=== PATIENT | male | born 1965 | race Caucasian/White ===

== ENCOUNTER 2021-12-04 08:11 | Emergency (ER) | payer OTHER, SELFPAY ==
[2021-12-04 08:18] VITALS: BP 150/89; PULSE 64; RESP 16; TEMP 36.8; O2SAT 99
--- NOTE | 2021-12-04 08:24 | ED.URI ---
HPI - URI/Sore Throat General Chief Complaint: Upper Respiratory Infection Stated Complaint: cough up yellow phlem Time Seen by Provider: 12/04/21 08:39 Source: patient and RN notes reviewed Mode of arrival: ambulatory Limitations: no limitations History of Present Illness HPI Narrative: 56-year-old male presents with concern for history cough chest congestion sinus drainage, headache. He reports a low-grade fever yesterday. Reports the symptoms started after he came [place]. He reports he has been taking Sudafed, using a Neti pot and taking ibuprofen with little relief. MD elicited complaint: cough and nasal congestion Related Data Allergies Allergy/AdvReac Type Severity Reaction Status Date / Time No Known Allergies Allergy Unverified 09/24/21 10:55 Review of Systems Review of Systems: CONSTITUTIONAL: Reports malaise, low-grade fever. EYES: Denies visual changes, redness, or discharge. ENT: Reports rhinorrhea, congestion, sinus pain. Denies otalgia and sore throat. CARDIOVASCULAR: Denies chest pain, palpitations, or edema. RESPIRATORY: Reports productive cough, chest congestion. Denies dyspnea. GASTROINTESTINAL: Denies abdominal pain, nausea, vomiting, diarrhea SKIN: Denies rash or itching. MUSCULOSKELETAL: Denies myalgia. NEUROLOGIC: Reports headache. All systems reviewed & are unremarkable except as noted in HPI and below PMFSH Past Medical History Medical History (Updated 12/04/21 @ 08:46 by Kavita Camp NP) Actinic keratosis Elevated blood pressure reading Erectile dysfunction Hypertriglyceridemia IFG (impaired fasting glucose) CHIDI (obstructive sleep apnea) Family History Family History Mother Family history of Parkinson's disease Father Family history of coronary artery disease Sibling Family history of malignant neoplasm of breast in first degree relative Social History Social History Smoking status: Never smoker Alcohol intake: never Substance use: never Gender identity (if verbalized by the patient): Male Comments At time of signature, agree with nursing past medical, surgical, social and family history. There is no relevant family history pertinent to the presenting complaint Exam Narrative: GENERAL: Well-appearing, well-nourished, and in no acute distress. HEAD: Normocephalic EYES: PERRLA, conjunctivae clear ENT: Nares clear, turbinates edematous and erythematous, sinus tenderness. Mucous membranes moist. TM pearly bettencourt with dull light reflex bilaterally; no tragal tenderness. Oropharynx not erythematous without lesions. Tonsils not enlarged and without exudate, no drooling, no hoarseness, no trismus, uvula midline. NECK: Supple. No lymphadenopathy CHEST: Clear to auscultation, breath sounds equal. No wheezing, rhonchi, rales, or stridor. No respiratory distress, speaks in full sentences. HEART: Regular rate and rhythm. No murmur heard. SKIN: Warm, dry, no rash. NEURO: Alert and oriented x3. PSYCH: Normal mood and affect Course Course Emergency Course: Patient is aware of diagnosis, understands and agrees to treatment plan. Anticipatory guidance given. Patient agrees to follow-up as directed and is aware of reasons to seek care at the emergency department. Portions of this record may have been created with voice recognition software Level of Care: Express Care Visit Vital Signs Vital signs: Vital Signs Temperature 98.3 F 12/04/21 08:18 Pulse Rate 64 12/04/21 08:18 Respiratory Rate 16 12/04/21 08:18 Blood Pressure 150/89 H 12/04/21 08:18 Pulse Oximetry 99 12/04/21 08:18 Temperature 98.3 F 12/04/21 08:18 Pulse Rate 64 12/04/21 08:18 Respiratory Rate 16 12/04/21 08:18 Blood Pressure 150/89 H 12/04/21 08:18 Pulse Oximetry 99 12/04/21 08:18 Reviewed. MDM - URI/Sore Throat MDM Narrative Medical decision m
== END 2021-12-04 08:55 | disposition home or self-care (01) ==
PROVIDERS: Emergency Provider Nurse Practitioner; PCP Family Medicine
DX: J40 Bronchitis, not specified as acute or chronic (principal); G47.33 Obstructive sleep apnea (adult) (pediatric); E78.1 Pure hyperglyceridemia; Z20.822 Contact with and (suspected) exposure to COVID-19
CPT/HCPCS: 87426; 87804; 99213; C9803; G0463

== ENCOUNTER → 2021-12-28 16:48 | Outpatient (CLI) | payer OTHER, SELFPAY ==
--- NOTE | ~2021-12-28 | XR_ITS ---
XR finger 4th RT min 2V DATE: 12/28/2021 17:09 INDICATION: Fourth digit pain TECHNIQUE: 4 views COMPARISON: None FINDINGS: No recent fracture or dislocation, periosteal reaction or bone destruction is detected. Sobeida nt spaces are relatively preserved. Likely chronic small linear calcification is noted adjacent to th e medial aspect of the base of the proximal phalanx, likely chronic. No radiopaque soft tissue foreig n body or subcutaneous emphysema. IMPRESSION: No acute finding Reviewed, dictated and finalized at location A. TE ENCODING OPERATIONS SUPERVISOR IMPRESSION: No acute finding
== END ==
PROVIDERS: PCP Family Medicine; Visit Provider Family Medicine
DX: M79.646 Pain in unspecified finger(s) (principal)
CPT/HCPCS: 73140

== ENCOUNTER 2023-04-16 08:38 | Emergency (ER) | payer OTHER, SELFPAY ==
[2023-04-16 08:46] VITALS: BP 143/86; PULSE 56; RESP 16; TEMP 36.5; O2SAT 99
--- NOTE | 2023-04-16 08:58 | ED.URI ---
HPI - URI/Sore Throat General Chief Complaint: Upper Respiratory Infection Stated Complaint: SINUS CONGESTION/DRAINAGE/COUGH Time Seen by Provider: 04/16/23 08:58 History of Present Illness HPI Narrative: 57-year-old male presented for complaint of pressure congestion with cough for over 1 week. He is taking Sudafed yesterday with some relief in symptoms. He endorses occasional wheezing/rattling in the chest. Symptoms worse at night. Cough is productive of yellow or green sputum. He denies shortness of breath, nausea vomiting diarrhea, lethargy, fevers chills. Related Data Allergies Allergy/AdvReac Type Severity Reaction Status Date / Time No Known Allergies Allergy Verified 10/15/22 10:06 Review of Systems Review of Systems: CONSTITUTIONAL: Denies body aches, fever, chills, or sweats. EYES: Denies visual changes, redness, or discharge. ENT: reports rhinorrhea, congestion, denies sore throat or otalgia. CARDIOVASCULAR: Denies chest pain, palpitations, or edema. RESPIRATORY: reports cough Denies dyspnea. GASTROINTESTINAL: Denies abdominal pain, nausea, vomiting, or diarrhea. SKIN: Denies rash, itching, or wounds. MUSCULOSKELETAL: Denies back pain, joint pain, or myalgia. NEUROLOGIC: Denies headache PMFSH Past Medical History Medical History Actinic keratosis Elevated blood pressure reading Erectile dysfunction Hypertriglyceridemia IFG (impaired fasting glucose) CHIDI (obstructive sleep apnea) Family History Family History Mother Family history of Parkinson's disease Father Family history of coronary artery disease Sibling Family history of malignant neoplasm of breast in first degree relative Social History Social History Smoking status: Never smoker Alcohol intake: never Substance use: never Living arrangements: with family Occupation/Education: occupation Gender identity (if verbalized by the patient): Male Sexual Orientation (if Verbalized by the Patient): Straight or Heterosexual Spiritual care concerns: No Exam Narrative: GENERAL: well-appearing, no acute distress. EYES: conjunctivae clear ENT: Mucous membranes moist. TMs pearly bettencourt with normal light reflex bilaterally; no tragal tenderness. Oropharynx not erythematous without lesions. No drooling, no hoarseness, no trismus, uvula midline. No tripod positioning, hot potato voice, or soft palate swelling. NECK: Supple. No lymphadenopathy CHEST: Clear to auscultation, breath sounds equal. No respiratory distress, speaks in full sentences. HEART: Regular rate and rhythm. No murmur heard. SKIN: Warm, dry, no rash. NEURO: Alert and oriented x3. Course Course Emergency Course: Patient is aware of diagnosis, understands and agrees to treatment plan. Anticipatory guidance given. Patient agrees to follow-up as directed and is aware of reasons to seek care at the emergency department. Portions of this record may have been created with voice recognition software Level of Care: Express Care Visit Vital Signs Vital signs: Vital Signs Temperature 97.7 F 04/16/23 08:46 Pulse Rate 56 L 04/16/23 08:46 Respiratory Rate 16 04/16/23 08:46 Blood Pressure 143/86 H 04/16/23 08:46 Pulse Oximetry 99 04/16/23 08:46 Temperature 97.7 F 04/16/23 08:46 Pulse Rate 56 L 04/16/23 08:46 Respiratory Rate 16 04/16/23 08:46 Blood Pressure 143/86 H 04/16/23 08:46 Pulse Oximetry 99 04/16/23 08:46 MDM - URI/Sore Throat MDM Narrative Medical decision making narrative: Discussed physical exam findings. Advise supportive treatments. Patient is appropriate for outpatient treatment and follow-up. Differential Diagnosis Differential diagnosis: Likely upper respiratory infection, sinusitis, viral infection and pharyngitis Discharge Plan Disc
== END 2023-04-16 09:16 | disposition home or self-care (01) ==
PROVIDERS: Emergency Provider Nurse Practitioner Family; PCP Family Medicine
DX: J06.9 Acute upper respiratory infection, unspecified (principal); E78.1 Pure hyperglyceridemia; R73.01 Impaired fasting glucose
CPT/HCPCS: 99213; G0463

== ENCOUNTER → 2024-10-22 09:53 | Outpatient (CLI) | payer OTHER, SELFPAY ==
--- OUTSIDE RECORDS SUMMARY | 2024-10-22 11:06 | XMS_ITS | Clinical Summary ---
Author Organization [facility] Address [address] [place] [address] Care Team Providers Care Commercial Lending Relationship Manager Name Role Phone Unavailable Primary Care Provider Unavailabl e Source Comments [facility],non-owned Affiliates and Associated Physician Practices is amultiple site organization consisting of ambulatory clinics and hospital sitesin [place], [place], [place] and [place]. This disclosure is being madepursuant to the Care Everywhere program and may not contain all information available regarding this patient. Last updated 17.[facility] Social History Tobacco Use Types Packs/Day Years Used Date Smoking Tobacco: Never Assessed Sex and Gender Information Value Date Recorded Sex Assigned at Not on file Legal Sex Male 3:57 PM CDT Gender Identity Not on file Sexual Orientation Not on file Plan of Treatment Health Maintenance Due Date Last Done Comments COLOGUARD (AGES 45-75) - COL ON CA SCREENING 1964 COLON MONITORING 1964 COLONOSCOPY - COLON CA SCREENING 1964 CT COLONOGRAPHY - COLON CA SCREENING 1964 Colorectal Cancer Screening 1964 FIT - COLON CA SCREENING 1964 FLEX SIG - COLON CA SCREENING 1964 LIPID TESTING 1964 HIV SCREENING 06/21/1979 HEPATITIS C SCREENING 06/16/1982 DTAP/TDAP/TD VACCINES (1 - Tdap) 06/21/1983 PNEUMOCOCCAL VACCINE 50+ (1 of 1 - PCV) 2014 ZOSTER VACCINE (1 of 2) 2014 DEPRESSION SCREENING 02/08/2024 COVID-19 VACCINE (1 - 2023-2 5 season) 2024 INFLUENZA VACCINE (#1) 2024 Respiratory Syncytial Virus (RSV) Vaccine Pt: or over 60 yrs (1 - 1-dose 75+ series) 06/21/2039 HEPATITIS B VACCINE Aged Out No longe r eligible based on patient's age to complete this topic HIB VACCINE Aged Out No longer eligi ble based on patient's age to complete this topic HPV VACCINE Aged Out No longer eligi ble based on patient's age to complete this topic MENINGOCOCCAL (Group B) VACC INE SHARED DECISION-MAKING Aged Out No longer eligibl e based on patient's age to complete this topic MENINGOCOCCAL GROUPS A/C/Y/W VACCINE Aged Out No longer eligible b ased on patient's age to complete this topic Insurance
--- OUTSIDE RECORDS SUMMARY | 2024-10-22 11:06 | XMS_ITS | Encounter Summary ---
Author Organization [facility] Address [address] [place] [address] Care Team Providers Care Director Recreation Name Role Phone Unavailable Primary Care Provider Unavailabl e Encounter Details Date Type Department Care Team (Late st Contact Info) Description 09/06/2023 Lab Requisition [facility] - DermPath Lab [address] [place] [address] Jesus Guerra MD [facility] DERMATOLOGY [address] [place] [phone] Neoplasm of uncertain behavior of skin Social History Tobacco Use Types Packs/Day Years Used Date Smoking Tobacco: Never Assessed Sex and Gender Information Value Date Recorded Sex Assigned at Not on file Legal Sex Male 3:57 PM CDT Gender Identity Not on file Sexual Orientation Not on file documented as of this encounter Plan of Treatment Not on file documented as of this encounter Procedures Procedure Name Priority Date/Time Associated Diagnosis Comments DERMATOPATHOLOGY Routine 09/06/2023 12:0 0 AM CDT Neoplasm of uncertain behavior of skin documented in this encounter Results * DERMATOPATHOLOGY (09/06/2023 12:00 AM CDT) Case Report Dermatopathology Report Case: [id number] Authorizing Provider: Jesus Guerra MD Collected: 09/06/2023 12:00 AM Ordering Location: [facility] - Received: 09/07/2023 01:06 PM DermPath Lab Pathologist: Ariana Renae MD Specimen: Skin, right nasal dorsum 12:15 PM CDT DERMATOPATHOLOGY LABORATORY Final Diagnosis Specimen A. SKIN, right nasal dorsum: BASAL CELL CARCINOMA, INFILTRATIVE PATTERN ([id number]) (see microscopic description) 12:15 PM CDT DERMATOPATHOLOGY LABORATORY at 1215 CDT Clinical History BCC 12:15 PM CDT DERMATOPATHOLOGY LABORATORY Gross Description Specimen A: Received is one formalin filled container labeled with the patient's name and designated right nasal dorsum. The specimen consists of a shave biopsy measuring 5x3x1 mm. Jar 0. 12:15 PM CDT DERMATOPATHOLOGY LABORATORY Microscopic Description Specimen A. SKIN, right nasal dorsum: Within the dermis there are nodular aggregates of basaloid cells associated with fibromyxoid stroma and epithelial-stromal clefts. At the advancing margin of the neoplasm, there are smaller angulated nests that infiltrate the dermis. Additional deeper sections were obtained and reviewed. 12:15 PM CDT DERMATOPATHOLOGY LABORATORY Disclaimer An external and internal positive and negative controls are appropriate for the histochemical, immunohistochemical and immunofluorescence stain(s) in this case (if any), except where stated explicitly. The performance characteristics of the stain(s) cited in this report were developed and its performance characteristic determined by the Dermatopathology Laboratory at [facility], directed by Dr. Cherelle Sierra. These tests need not be, and therefore are not, approved by the [place] Food and Drug Administration. The tests are used for clinical purposes. Billing Codes Specimen Charges Stain Charges 76335 1 12:15 PM CDT DERMATOPATHOLOGY LABORATORY Embedded Images 12:15 PM CDT DERMATOPATHOLOGY LABORATORY Pathology/Cytolog y TISSUE SPECIMEN FROM SKIN / Unknown 09/06/2023 09/07/2023 1:06 PM CDT us Jesus Guerra MD LAB - PATHOLOGY/CYTOLOGY [facility] Final Result DERMATOPATHOLOGY LABORATORY [facility] - Department of Dermatology [address] [place] [address], [facility] [phone] documented in this encounter Visit Diagnoses Diagnosis Neoplasm of uncertain behavior of skin documented in this encounter
--- NOTE | 2024-11-07 16:08 | WPDSLEEPSTUD ---
Sleep Study Date of Study: 10/22/24 Ordering Provider: Roxanne Koenig MD Interpreting Physician: Roxanne Koenig MD Sleep Study Type: Split Polysomnogram Height: 1.78 m Weight: 95.254 kg Body Mass Index: 30.1 Neck Circumference (inches): 15 [place]: 10 Reason for Sleep Study known obstructive sleep apnea, sleep maintenance insomnia, machine is old, needs repeat testing Sleep History Sammy Rangel is a 59-year-old man with obstructive sleep apnea diagnosed and treatment started about 2015. He has the same machine since 2016 at the same setting, CPAP 7 cm. He has sleep maintenance insomnia which started about the time that he was diagnosed with sleep apnea. He uses trazodone every night to get to sleep. He has had night sweats for many years. He wakes up with a racing heart. 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 He initially had a sleep study in lying in sleep lab, was given CPAP and started on trazodone. His machine is old and he needs re-evaluation. He frequently awakens from sleep feeling short of breath with palpitations. He occasionally awakens at night with heartburn, belching or coughing. He frequently snores when not wearing CPAP, and he snores loud enough for others to complain also while not using CPAP. He occasionally has difficulty sleeping when he has a cold. He rarely wakes up gasping for breath during the night. He frequently has breathing problems at night observed by others. He frequently sweats excessively at night and notices palpitations at night. He occasionally falls asleep during the day. He never falls asleep involuntarily but has rarely fallen asleep while driving. He does not have loss of muscle tone with strong emotion. He occasionally has daytime difficulties due to excessive sleepiness. He does not feel paralyzed on waking or falling asleep. He rarely has vivid dreamlike scenes upon awakening or falling asleep. He does not feel afraid to go to sleep. He occasionally has nightmares. He rarely remembers his dreams. He frequently has racing thoughts. He occasionally feels sad or depressed. He frequently has anxiety. He rarely has muscular tension. He rarely notices parts of his body jerking. He does not think that he kicks at night. He rarely has crawling or aching feelings in his legs at night. He rarely has any kind of leg pain at night. He does not have morning jaw pain nor does he grind his teeth at night. He rarely is bothered by pain during the day, never awakened by pain at night. He frequently wakes up feeling stiff in the morning with sore achy muscles and pain in the neck and spine. He has fatigue, memory problems, concentration difficulties, insomnia, headaches and palpitations. Normal bedtime is 10:00 p.m. falling asleep within 5-10 minutes, waking 4 times at night to use the bathroom and he may take another trazodone if he can not return to sleep. He estimates waking 4 times during the night and he may stay awake for an hour before being able to return to sleep. He estimates getting 4 hours of sleep on average night. This is causing to back off on social activities. He has erectile dysfunction and uses Viagra. His wake time is 2:00 a.m.. He keeps the same schedule on weekends. He generally does not take naps in the afternoon or evening but a short nap lasting 10 or 15 minutes may be refreshing. He feels better in the morning compared to other times of day. Sometimes he feels refreshed in the morning but not always. Habits: Tobacco : never smoker Caffeine : 1 servings daily Alcohol : no Recreational substances : no PMFSH Past Medical History Medical History IFG (impaired fasting glucose) Erectile dysfunction CHIDI (obstructive sleep apnea) Elevated blood pressure reading Actinic keratosis Hypertriglyceridemia Family History Family History Mother Family history of Parkinson's disease Father Family history of coronary artery disease Sibling Family history of malignant neoplasm of breast in first degree relative Social History Social History Smoking status: Never smoker Alcohol intake: never Substance use: never Living arrangements: with family Occupation/Education: occupation Gender identity (if verbalized by the patient): Male Sexual Orientation (if Verbalized by the Patient): Straight or Heterosexual Spiritual care concerns: No Medications Home Medications ?Medication ?Instructions ?Recorded ?Confirmed ?Type tadalafil 10 mg tablet 10 mg PO DAILY PRN sexual activity 04/20/24 11/07/24 Rx #18 tabs trazodone 100 mg tablet 150 mg (1.5 x 100 mg) PO QHS PRN 04/20/24 11/07/24 Rx insomnia #135 tabs Sleep Procedure A split night polysomnogram using the [employer] multi-channel system recorded the standard physiologic parameters including EEG, EOG, submentalis EMG, anterior tibialis EMG, EKG, body position, nasal and oral airflow using nasal pressure sensor and thermistor. Respiratory parameters of chest and abdominal movements were recorded with Respiratory Inductance Plethysmography belts. Oxygen saturation was recorded by pulse oximetry. Video monitoring was also performed. Sleep stages, periodic limb movements, and EEG arousals were scored in 30 second epochs according to the criteria of the AASM Scoring Manual. The Apnea-Hypopnea Index was calculated using [facility] guidelines for definition of hypopnea while scoring respiratory events. After the baseline portion the patient met criteria for a titration with an AHI of 13.2 (p>3%) and desaturation to 89%. He used a medium ResMed AirFit N30 I nasal mask with pillows, initial pressure was CPAP 5 with increased to CPAP 7 to help him fall asleep because the sleep efficiency was so low. At CPAP 7 cm, he spent 141.5 minutes in bed, 66 minutes awake, 48.5 minutes in non-REM and 27 minutes in REM. Sleep efficiency was 53.4% with a residual apnea-hypopnea index of 2.4. His lowest saturation was 92%. REM was in the left lateral position. both on the baseline and during the titration. Sleep Architecture During the diagnostic portion of the study, the total recording time was 228.8 minutes. The total sleep time was 159.0 minutes. Sleep latency was 20.8 minutes. REM latency was 98.5 minutes. Sleep Efficiency was 69.5%. The patient had 26 awakenings for an awakening index of 9.8. Wake after sleep onset time was 49.0 minutes. The patient spent 20.5 minutes, 12.9% of total sleep time in Stage N1. The patient spent 97.0 minutes, 61.0% in Stage N2. The patient spent 1.0 minute, 0.6% in Stage N3. The patient spent 40.5 minutes, 25.5% in Stage REM sleep. At 01:21:07 AM the patient was placed on PAP treatment using a Medium ResMed AirFit N 30 I nasal mask with pillows, initial pressure was CPAP 5 increased to CPAP 7 however the patient was awake most of the night after starting PAP therapy During the treatment portion of the study, the total recording time was 255.7 minutes. The total sleep time was 83.5 minutes. Sleep latency was 84.5 minutes. REM latency was 33.0 minutes. Sleep Efficiency was 32.7%. Wake after Sleep Onset time was 87.5 minutes. The patient spent 8.5 minutes, 10.2% of total sleep time in Stage N1. The patient spent 48.0 minutes, 57.5% in Stage N2. The patient spent no time in Stage N3. The patient spent 27.0 minutes, 32.3% in Stage REM. Respiratory Analysis During the diagnostic portion of the study, the patient had 21 hypopneas, 1 obstructive apnea, no mixed apneas, and 4 central apneas for an overall Apnea Hypopnea Index of 9.8 using 4% criteria, and his AHI was 13.2 using 3% which is used for patients under 65 years of age, not on Medicare. The REM Apnea Hypopnea Index was 10.4. The NREM Apnea Hypopnea Index was 11.1. The patient had a Central Apnea Hypopnea Index of 1.5. The supine apnea-hypopnea index was 11.6, the nonsupine apnea-hypopnea index was 8.7. There were no Respiratory Effort Related Arousals. The Respiratory Disturbance Index is 12.8 events per hour. There was no evidence of Matthew-Ruiz Respirations. During the treatment portion of the study, the patient had 1 hypopnea, 1 obstructive apnea, no mixed apneas, and 1 central apnea for an overall Apnea Hypopnea Index of 2.2 events per hour. The REM Apnea Hypopnea Index was -. The NREM Apnea Hypopnea Index was 3.2. The patient had a Central Apnea Hypopnea Index of 0.7. There were no Respiratory Effort Related Arousals. The Respiratory Disturbance Index is 5.0 events per hour. There was no evidence of Matthew-Ruiz Respirations. Arousals During the diagnostic portion of the study, there were a total of 65 arousals for an arousal index of 24.5. There were 7 respiratory arousals for an index of 2.6. There were no periodic limb movement arousals. There were 2 isolated limb movement arousals for an index of 0.8. There were 56 spontaneous arousals for an index of 21.1. During the treatment portion of the study, there were a total of 29 arousals for an index of 20.8. There were 3 respiratory arousals for an index of 2.2. There were no periodic limb movement arousals. There was 1 isolated limb movement arousal for an index of 0.7. There were 25 spontaneous arousals for an index of 18.0. Periodic Limb Movements During the diagnostic portion of the study, the patient had 6 isolated limb movements with an index of 2.3. The patient had no periodic limb movements. The patient had a total of 6 limb movements with a total limb movement index of 2.3.+ During the treatment portion of the study, the patient had 2 isolated limb movements with an index of 1.4. The patient had 16 periodic limb movements with an index of 11.5. The patient had a total of 18 limb movements with a total limb movement index of 12.9. Oximetry Data During the diagnostic portion of the study, the patient had an average oxygen saturation of 94% in wake with a minimum oxygen saturation of 88% and a maximum oxygen saturation of 98%. The patient had an average oxygen saturation of 93.5% in sleep with a minimum oxygen saturation of 89% and a maximum oxygen saturation of 98%. The patient had 33 oxygen desaturations resulting in an Oxygen Desaturation Index of 12.5. The patient spent 0.1 minutes, no sleep time with an oxygen saturation less than 88%. During the treatment portion of the study, the patient had an average oxygen saturation of 95.2% in wake with a minimum oxygen saturation of 91% and a maximum oxygen saturation of 98%. The patient had an average oxygen saturation of 94.6% in sleep with a minimum oxygen saturation of 92% and a maximum oxygen saturation of 98%. The patient had 5 oxygen desaturations resulting in an Oxygen Desaturation Index of 3.6. The patient spent no time with an oxygen saturation less than 88%. Snoring Profile During the diagnostic portion, snoring was mild, eliminated after CPAP 7 cm. Cardiac Profile During the diagnostic portion of the study, the EKG showed normal sinus rhythm. The average pulse rate was 53.9 bpm. The minimum pulse rate was 44 bpm, maximum pulse rate was 69 bpm. No arrhythmias noted. During the treatment portion of the study, the EKG showed normal sinus rhythm. The average pulse rate was 50.9 bpm, minimum pulse rate was 43 bpm, maximum pulse rate was 72 bpm. No arrhythmias noted. EEG Profile Unremarkable, no evidence of seizures. Assessment and Plan Assessment and Plan (1) CHIDI (obstructive sleep apnea): Code(s): G47.33 - Obstructive sleep apnea (adult) (pediatric) Status: Acute Assessment and Plan: This split night sleep study on 10/22/2024 shows baseline with mild obstructive sleep apnea, the apnea-hypopnea index is 9.8 using 4% criteria and 13.2 using 3% criteria with desaturation to 89% and mild snoring, more significant apnea in the supine position, with incomplete titration due to increased wake after sleep onset which is one of his underlying issues. At CPAP 7 cm, he spent 141.5 minutes in bed, 66 minutes awake, 48.5 minutes in non-REM and 27 minutes in REM. Sleep efficiency was 53.4% with a residual apnea-hypopnea index of 2.4. His lowest saturation was 92%. When he was initially diagnosed with obstructive sleep apnea he was placed on CPAP 7 cm, he has gained 15 lb since then but continues uses same machine from 2016. I recommend a Resmed AirSense machine with CPAP 8 cm with a medium ResMed AirFit N30 I nasal pillow and heated humidity with all supplies including filters/tubing and humidifier chamber. This should be used with all episodes of sleep. Compliance should be reviewed within 31-90 days of starting therapy for usage greater than 4 hours per night greater than 70% of the nights. The patient should be asked about symptoms such as excessive daytime sleepiness, quality of sleep, decreased nocturia, increased mental functioning such as memory, mood, and concentration. It is likely that he will require an increase in pressure to 9 cm or 10 cm to relive symptoms , arpit in the supine position. He has had sleep maintenance insomnia for almost as long as he has had a diagnosis of obstructive sleep apnea. He knows that insomnia is often associated with mood disorders, and he is seeking additional management for this. He was able to fall asleep easily using Lunesta, however could not return to sleep easily after waking during this study . (2) Insomnia: Code(s): G47.00 - Insomnia, unspecified Status: Acute Assessment and Plan: Longstanding sleep maintenance insomnia, has had this problem almost as long as he has had obstructive sleep apnea, 2016 or before. He can achieve sleep for several hours may be 4 but does wake up about 4 times per night and may require an hour or more to return to sleep. He has underlying anxiety which has not been addressed for years. He has used trazodone 100 mg HS which assist with falling asleep but does not keep him of sleep more than 4 hours. Cognitive behavioral therapy is recommended for the patient. He has solid sleep hygiene, good habits that should optimize his sleep quality. Data The data obtained during this sleep study is adequate for interpretation. Certification This sleep study has been reviewed by a board certified sleep medicine physician.
[2024-11-13 13:05] VITALS: BMI 30.1
== END ==
PROVIDERS: PCP Family Medicine; Visit Provider Internal Medicine Critical Care Medicine
DX: G47.33 Obstructive sleep apnea (adult) (pediatric) (principal); G47.00 Insomnia, unspecified
CPT/HCPCS: 95811

== ENCOUNTER 2025-01-06 17:09 | Emergency (ER) | payer OTHER, SELFPAY ==
[2025-01-06 17:19] VITALS: BP 175/87; PULSE 56; RESP 16; TEMP 36.1; O2SAT 100
--- NOTE | 2025-01-06 17:34 | ED.EYEPROB ---
HPI - Eye Problem General Chief complaint: Eye Problems Stated complaint: LT Eye injury Patient presents to the [facility] accompanied by spouse with complaints of irritation, redness, tearing, and sensitivity light in the left eye that began immediately after this I being hit with a plastics sled. Patient noted he was getting the slide out of garage in this slipped. Patient outlook contacts or glasses. Denies loss of vision, headaches, or dizziness Related Data Allergies Allergy/AdvReac Type Severity Reaction Status Date / Time No Known Allergies Allergy Verified 11/07/24 11:20 Review of Systems Constitutional: Constitutional: Reports as per HPI, Denies chills, Denies fatigue, Denies fever(s) and Denies weakness Eyes: Eyes: Reports as per HPI, Denies change in vision and Reports photophobia Comments: redness, tearing, irritation left eye ENT: Reports as per HPI, Denies vertigo, Denies dizziness, Denies nasal congestion and Denies sore throat Cardiovascular: Cardiovascular: Reports no additional cardiovascular complaints Respiratory: Respiratory: Reports no additional respiratory complaints Gastrointestinal: Gastrointestinal: Reports no additional gastrointestinal complaints Genitourinary: Genitourinary: Reports no additional male genitourinary complaints Musculoskeletal: Musculoskeletal: Reports no additional musculoskeletal complaints Integumentary/Breasts: Skin/Breast: Reports system reviewed and no additional complaints, except as docu Neurologic: Reports as per HPI, Denies vertigo, Denies dizziness, Denies headache(s), Denies numbness and Denies weakness Psychiatric: Psychiatric: Reports no additional psychiatric complaints Endocrine: Endocrine: Reports no additional endocrine complaints Hematologic/Lymphatic: Hematologic/Lymphatic: Reports no additional hematologic/lymphatic complaints Allergic/Immunologic: Allergic/Immunologic: Reports no additional allergic/immunologic complaints [facility] Past Medical History Medical History IFG (impaired fasting glucose) Erectile dysfunction CHIDI (obstructive sleep apnea) Elevated blood pressure reading Actinic keratosis Hypertriglyceridemia Family History Family History Mother Family history of Parkinson's disease Father Family history of coronary artery disease Sibling Family history of malignant neoplasm of breast in first degree relative Social History Social History Smoking status: Never smoker Alcohol intake: never Substance use: never Living arrangements: with family Occupation/Education: occupation Gender identity (if verbalized by the patient): Male Sexual Orientation (if Verbalized by the Patient): Straight or Heterosexual Spiritual care concerns: No Exam Const: General: healthy appearing and no acute distress Nutritional Appearance: well nourished Orientation/consciousness: patient oriented x3 Limitations: no limitations HENMT: Head: normal to inspection Ears: external ears normal and TM's normal bilaterally Face and sinus: normal facial exam and sinuses nontender Eyes: Conjunctivae: conjunctival abnormality ( tearing and injection) left Pupils: Equal, round and reactive pupils present EOM: EOMs intact bilaterally Direct Ophthalmoscopy: photophobia Other: Wood's lamp procedure performed large corneal abrasion noted at 5 o'clock. no foreign body noted Resp: Effort & Inspection: normal respiratory effort Auscultation: clear to auscultation bilaterally Cardio: Rate: regular rate Rhythm: regular rhythm Skin: General skin exam: normal color Rashes: no rashes Wounds: no wounds Neuro: General: patient oriented x3 Cranial nerves: Yes Nystagmus not present Speech: normal speech Gait exam (Neuro): Normal gait present Psych: Mental Status: mental status grossly normal Affect: normal affect Attitude: cooperative Course Course Level of Care: Express Care Visit Vital Signs Vital signs: Vital Signs Temperature 97 F L 01/06/25 17:19 Pulse Rate 56 L 01/06/25 17:19 Respiratory Rate 16 01/06/25 17:19 Blood Pressure 175/87 H 01/06/25 17:19 Pulse Oximetry 100 01/06/25 17:19 Oxygen Delivery Room Air 01/06/25 17:19 Temperature 97 F L 01/06/25 17:19 Pulse Rate 56 L 01/06/25 17:19 Respiratory Rate 16 01/06/25 17:19 Blood Pressure 175/87 H 01/06/25 17:19 Pulse Oximetry 100 01/06/25 17:19 Oxygen Delivery Room Air 01/06/25 17:19 Procedures Other Procedure Procedure 1: Other Procedure: Topical anesthetic was instilled with good anesthesia using 1gtt of opth anesthetic agent (tetracaine) in the left eye. Fluorescein stain of the L eye was performed with uptake of dye to a moderate/large size corneal abrasion at 5 o'clokc. No epithelial defect was noted. NO FB, ulcer or dendritic lesions. Upper lid was everted and no FB or lesions were noted. NO Dav sign. Normal saline irrigation eye solution was performed and the patient tolerated the procedure well, no adverse reaction or complications. MDM - Eye Problem MDM Narrative Medical decision making narrative: Very large corneal abrasion noted at 5 o'clock left eye The patient was evaluated by myself in the [facility] care. History is obtained from patient who is an independent historian and physical exam was performed. Available medical records were reviewed at this time. Exam findings show no acute concerns or changes; patient is non-toxic appearing and is in no distress. Patient is appropriate for outpatient treatment and follow-up. I have evaluated and discussed social determinants of health with the patient that could potentially impact subsequent diagnosis and treatment plans. Differential diagnosis and treatment plan were discussed with the patient. Patient agrees with discussion and after shared medical decision making agrees with plan of care. All questions were answered to the patient's satisfaction. Differential Diagnosis Differential diagnosis: Likely corneal abrasion, conjunctivitis, acute iritis, hyphema, subconjunctival hemorrhage, glaucoma and ruptured globe Medical Records Attestation: I reviewed the patient's medical records. Discharge Plan Discharge Clinical Impression: Abrasion of cornea, left Patient Disposition: Home Condition: Stable Instructions: Antibiotic Form, Corneal Abrasion (ED) Additional Instructions: Corneal abrasions will heal in 1-2 days. Keep your eye shut and wearing sunglasses or staying in low light to avoid light sensitivity. Do not touching or rubbing your eye or use a fabric patch (pirate's patch) You may take Tylenol or ibuprofen for pain Follow-up with PCP or operating room nurse if condition is not improving in 2-3days. Patient Language: Mohawk Prescriptions: New polymyxin B sulf-trimethoprim 10,000 unit- 1 mg/mL drops 1 drp LEFT EYE Q8H 5 Days Qty: 10 0RF Rx Instructions: while awake; do not exceed 6 doses in 24 hours No Action trazodone 100 mg tablet 150 mg PO QHS PRN (Reason: insomnia) Qty: 135 2RF tadalafil 10 mg tablet 10 mg PO DAILY PRN (Reason: sexual activity) Qty: 18 2RF Rx Instructions: administer approximately 30min before sexual activity; do not use more than 1 dose per 24hrs Follow-up/Referrals: Timmy De La Cruz MD [Primary Care Provider, Family Practice] Time of Disposition: 17:36
== END 2025-01-06 17:41 | disposition home or self-care (01) ==
PROVIDERS: Emergency Provider Nurse Practitioner Family; PCP Family Medicine
DX: S05.02XA Injury of conjunctiva and corneal abrasion without foreign body, left eye, initial encounter (principal); W22.8XXA Striking against or struck by other objects, initial encounter; E78.1 Pure hyperglyceridemia; R73.01 Impaired fasting glucose
CPT/HCPCS: 99213; A9270; G0463